=== PATIENT | male | born 1950 | race Caucasian/White ===

== ENCOUNTER 2017-12-31 10:02 | Outpatient (CLI) | payer MEDICARE, OTHER ==
--- NOTE | 2017-12-31 11:57 | RAD ---
PA AND LATERAL CHEST: Date: 12-31-17 History: Pre-operative evaluation. FINDINGS: Cardiac silhouette and pulmonary vasculature are within normal limits. Lungs are clear. Mild degenera tive changes are seen in the spine. IMPRESSION: No acute cardiopulmonary process. POS: CHARLIE
[2017-12-31 12:13] LABS: Hemoglobin 13.6 g/dL (14.0-18.0); Mean Corpuscular HGB CONC 33.6 g/dL (32.0-36.0); Mean Corpuscular Hemoglobin 31.8 pg (27.0-31.0); Mean Corpuscular Volume 94.6 fl (80.0-94.0); Mean Platelet Volume 8.6 fL (7.4-10.4); Platelet Count 179 thou/uL (130-400); RBC Distribution Width 12.3 % (11.5-14.5); Red Blood Cell (RBC) Count 4.27 mill/uL (4.70-6.10); White Blood Cell (WBC) Count 8.2 thou/uL (4.8-10.8)
[2017-12-31 12:33] LABS: Anion Gap 12 mmol/L (10-20); BUN (Urea Nitrogen) 17 mg/dL (8.4-25.7); Calc. Creatinine Clearance 0 mL/min (70-130); Calcium 9.1 mg/dL (7.8-10.44); Carbon Dioxide 24 mmol/L (23-31); Chloride 107 mmol/L (98-107); Estimated GFR-MDRD 82; Glucose 123 mg/dL (80-115); Potassium 4.1 mmol/L (3.5-5.1); Sodium 139 mmol/L (136-145)
== END 2017-12-31 10:03 | disposition home or self-care (01) ==
LOC: LABBT 10:02
PROVIDERS: ATTEND Urology
DX: Z01.818 Encounter for other preprocedural examination (principal); N40.0 Benign prostatic hyperplasia without lower urinary tract symptoms
CPT/HCPCS: 71046; 80048; 85027

== ENCOUNTER 2018-01-09 09:33 | Day surgery (SDC) | payer MEDICARE, OTHER ==
[2017-12-31 10:56] VITALS: BMI 31.9
[2018-01-09] MEDS ORDERED: Sodium Chloride 0.9% 100 ML ONE (09:58)
[2018-01-09] MEDS ORDERED: Dexamethasone 4 mg/ml Vial ONE (09:58)
[2018-01-09] MEDS ORDERED: Vancomycin HCl 500 MG VIAL ONE (09:58)
[2018-01-09] MEDS ORDERED: B & O ONE (10:05)
[2018-01-09] MEDS ORDERED: Furosemide 20 MG/2 ML VIAL ONE (10:05)
[2018-01-09] MEDS ORDERED: Fentanyl 100 MCG/2 ML VIAL ONE (10:11)
[2018-01-09] MEDS ORDERED: PHENYLEPHRINE-NS 100 MCG/ML 10 ML SYRINGE ONE (10:12)
[2018-01-09] MEDS ORDERED: Lidocaine 1% PF 5 ML VIAL ONE (14:24)
[2018-01-09] MEDS ORDERED: PROPOFOL 200 MG/20 ML VIAL ONE (14:24)
[2018-01-09] MEDS ORDERED: Ondansetron HCl/PF 4 MG/2 ML Vial ONE (14:24)
[2018-01-09] MEDS ORDERED: Metoclopramide HCl 10 MG/2 ML VIAL ONE (14:24)
[2018-01-09] MEDS ORDERED: ePHEDrine/0.9% NaCl/PF SYRINGE 50 mg/10 ml ONE (14:24)
--- NOTE | 2018-01-10 09:03 | OP ---
DATE OF SERVICE: 01/09/2018 PREOPERATIVE DIAGNOSES: Benign prostatic hypertrophy and retention. POSTOPERATIVE DIAGNOSES: Benign prostatic hypertrophy and retention. PROCEDURE: GreenLight laser vaporization of the prostate with enucleation of the middle and lateral lobes using 327,000, 498 joules. SURGEON: Farideh Kumar M.D. ANESTHESIA: General with laryngeal mask airway. FINDINGS: Adequate opening up of a small middle lobe and large lateral lobes. SPECIMEN: Prostate. COMPLICATIONS: None. ESTIMATED BLOOD LOSS: Minimal. DRAINS: 20-Pakistani 2-way. INDICATIONS: The patient is a 67-year-old male who I saw at [facility]. He was admitted with renal failure from BPH. He passed and then failed voiding trials since and had an indwelling remain and so was set up for definitive therapy. TECHNIQUE: The patient was brought to the room by Anesthesia, laid on the table in supine position. After receiving a general anesthetic, a flexible placed on lithotomy position and his perineum was prepped and draped in sterile fashion. Using a 22.5 Pakistani scope and 30-degree lens with there was traversed and the bladder inspected. The orifices were not easily seen at first, given the obstructing middle lobe, but once this was carefully taken down and they were easily seen and safely far away from the bladder neck. A power level of 80 was used to initiate the lateral lobes of the bladder neck for enucleation and then changed to a power level 180 in the mid gland. Care was taken to remove the lobe in such fashion that the pieces were small enough to be able to be rinsed out. This was done all the way down to the veru and then the chips were all safely removed, the bladder decompressed and hemostasis was evaluated. There was minimal to no bleeding noted. Then, I did further contour and at the bladder neck and near the veru to ensure the adequate resection had been performed and then the scope was removed, a good stream was noted. Scope was put back in and bladder decompressed a final time to ensure there was no bleeding noted. Power level of 80 was used to fulgurate any of the prostate bed where needed and then the scope was removed a final time. A 20-Pakistani 2- way was placed to gravity. The patient tolerated the procedure well and was awakened and transferred to the PACU in stable condition. ABEL
== END 2018-01-09 15:55 | disposition home or self-care (01) ==
LOC: SDC 09:33
PROVIDERS: ATTEND Urology
PROC: 0V507ZZ Destruction of Prostate, Via Natural or Artificial Opening (ICD-10-PCS; principal; 2018-01-09)
DX: N40.1 Benign prostatic hyperplasia with lower urinary tract symptoms (principal); R33.8 Other retention of urine; R39.12 Poor urinary stream; R39.14 Feeling of incomplete bladder emptying; N13.30 Unspecified hydronephrosis; N39.44 Nocturnal enuresis; N39.41 Urge incontinence; I10 Essential (primary) hypertension; F17.210 Nicotine dependence, cigarettes, uncomplicated; Z79.899 Other long term (current) drug therapy
CPT/HCPCS: 88305; J0131; J1100; J1940; J2001; J2405; J2704; J2765; J3010; J3370; J7050

== ENCOUNTER 2018-10-17 11:58 | Outpatient (CLI) | payer MEDICARE ==
--- NOTE | 2018-10-17 12:23 | RAD ---
F1 view abdomen series, KUB CLINICAL INDICATION: Calculus of kidney FINDINGS: Lung basesare not visualized for comment. No definitive radiopaque calculi overlying the expected regions of renal shadows although this is mar kedly obscured by overlying bowel content. No suspicious pelvic calcification is seen. Moderate retained fecal material is seen within colon. No acute osseous pathology. IMPRESSION: No definite suspicious desiccation overlying the renal shadows.
== END 2018-10-17 11:59 | disposition home or self-care (01) ==
LOC: RAD 11:58
PROVIDERS: ATTEND Urology
DX: N20.0 Calculus of kidney (principal); R97.20 Elevated prostate specific antigen [PSA]
CPT/HCPCS: 36415; 74018; 84153